=== PATIENT | male | born 1945 | race Caucasian/White ===

== ENCOUNTER 2017-05-30 11:44 | Outpatient (CLI) | payer MEDICARE ==
[~2017-05-30] VITALS: Ht 177.8 cm; Wt 114.5 kg
--- NOTE | ~2017-05-30 | DS ---
PATIENT:JYOTSNA RAY JR :45 MEDICAL RECORD: [id number] DISCHARGE SUMMARY ADMISSION DATE: 05/30/17 DISCHARGE DATE: 05/31/17 DIAGNOSES: 1. Angina. 2. Elevated troponin. 3. Nonsustained ventricular tachycardia. 4. Arm pain. HOSPITAL COURSE: This is a gentleman who had a fall and presented with arm pain after his fall, was noted to have nonsustained ventricular tachycardia and multiple PVCs and a mildly elevated troponin. He underwent cardiac catheterization revealing significant disease of the RCA and PTCA stent of the RCA. He was discharged home with the addition of aspirin, Plavix and Lopressor to his medical regimen. He will follow up with [facility] in 1 month. TRANSINT:[id number] Voice Confirmation ID: [id number] DOCUMENT ID: [id number] FAM BENAVIDES MD at 1056 CC: [id number] DICTATION DATE: 05/31/17916 ARTIST'S MODEL: 05/31/17 1326 DEP CLI 05/31/[address] [address]
--- NOTE | ~2017-05-30 | OP ---
PATIENT NAME: JYOTSNA RAY JR MEDICAL RECORD: [id number] :45 LOCATION:D.ER ADMISSION DATE: SURGEON: FAM BENAVIDES MD DATE OF OPERATION: 05/31/2017 PROCEDURES: 1. PTCA stent RCA. 2. Left heart catheterization. 3. Selective coronary angiography. 4. Left ventriculogram. 5. Intravascular ultrasound. INDICATION: Unstable angina, elevated troponin, and nonsustained ventricular tachycardia. PROCEDURE IN DETAIL: After informed consent was obtained and after a detailed description of risks, benefits as well as alternative therapies, the patient elected to proceed with angiogram and angioplasty. The right femoral area was prepped and draped in normal sterile fashion. Right femoral artery was cannulated via modified Seldinger technique with placement of 6-English sheath. All catheters exchanged through this sheath. FINDINGS: The left ventriculogram was performed in standard 30-degree HOLMAN view reveals preserved cardiac wall motion, ejection fraction 55%. SELECTIVE CORONARY ANGIOGRAPHY: 1. Left main is with no significant angiographic disease. 2. Left anterior descending has moderate irregularities, but no flow-limiting stenosis. 3. The left circumflex has moderate irregularities, but no flow-limiting stenosis. 4. Right coronary artery has 65% to 70% stenosis confirmed by intravascular ultrasound in the mid vessel. PTCA STENT OF THE RCA: The stent used was a 4.0 x 18 mm Integrity. Result was 0% residual stenosis. OVERALL IMPRESSION: Successful percutaneous transluminal coronary angioplasty stent of the right coronary artery going from 65% to 70% initial stenosis to 0% residual stenosis. TRANSINT:[id number] Voice Confirmation ID: [id number] DOCUMENT ID: [id number] FAM BENAVIDES MD at 1056 CC: [id number] DICTATION DATE: 05/31/17 0916 HOLLOW WARE MAKER: 05/31/17 1230 DEP CLI 05/31/17 [place] [address]
--- NOTE | ~2017-05-30 | HEMODYNAMI ---
PATIENT:JYOTSNA RAY JR MEDICAL RECORD: [id number] : 45 LOCATION:[address] [facility]# [id number] ADMISSION DATE: 05/30/17 Generatedon:05/31/20179:11 Patient name: JYOTSNA RAY Patient #: [id number] SSN: [id number] : 1945 Date of study: 05/31/2017 Page: Of Hemodynamic Procedure Report Patient Data Patient Demographics Procedure consent was obtained First Name: JYOTSNA Gender: Male Last Name: CORY Suffix: Patient #: [id number] : 1945 Age: 72 year(s) SSN: [id number] Race: Additional ID: [id number] Contact details Address: [address] [place] [address] State: [place] City: [facility] Zip code: [address] Past Medical History Allergies: No known allergies Admission Admission Data Admission Date: 05/30/2017 Admission Time: 14:38 Room #: D.2124 Lab Results Lab Result Date: 05/31/2017 Lab Result Time: 0:00 Biochemistry Name Units Result Min Max BUN mg/dl 34 --(----)-* 7 18 Creatinine mg/dl 2.2 --(----)-* 0.6 1.3 CBC Name Units Result Min Max Hemoglobin g/dl 11.5 *-(----)-- 13.5 17.5 Procedure Procedure Types Cath Procedure Diagnostic Procedure LHC [facility] w/Coronaries FFR/IVUS Intra-Coronary IVUS Initial PCI Procedure Coronary Stent Coronary Stent Initial Procedure Description Procedure Date Procedure Date: 05/31/2017 Procedure Start Time: 8:50 Procedure End Time: 9:11 Procedure Staff Name Function Francesco Dejesus MD Performing Physician Michael Meyers RT Monitor Francesca Coleman RT Scrub Kali Justin RN Nurse Procedure Data Cath Procedure Fluoroscopy Diagnostic fluoroscopy Total fluoroscopy Time: 4.2 time: 4.2 min min Diagnostic fluoroscopy Total fluoroscopy dose: dose: 323.3 mGy 323.3 mGy Contrast Material Contrast Material Type Amount (ml) Isovue 300 106 Entry Location Entry Primary Successful Side Size Upsize Upsize Entry Closure Succes sful Closure Location (Fr) 1 (Fr) 2 (Fr) Remarks Device Remarks Femoral Right 6 Fr Exoseal artery Short Diagnostic catheters Device Type Used For End Catheter Placement MULTIPACK Pigtail 5 Fr Procedure catheter MULTIPACK JL 4.0 5Fr Procedure catheter Procedure Medications Medication Administration Route Dosage Oxygen etCO2 Nasal cannula 6 l/min Heparin Flush Bag added to field 2 bags (1000units/500ml NS) 0.9% NaCl I.V. 100 ml/hr Refer to Anesthesia Notes for Sedation Medications Heparin Bolus I.V. 4000 units Hemodynamics Rest HGB: 11.5 (g/dl) Heart Rate: 87 (bpm) Pressure Samples Time Site Value (mmHg) Purpose Heart Use Rate(bpm) 8:52 LV 92/21,24 Snapshot 86 Snapshots Pre Cath Intra NCS Post Cath Vital Signs Time Heart Resp SPO2 etCO2 NIBP (mmHg) Rhythm Pain Sedation Rate (ipm) (%) (mmHg) Status Level (bpm) 8:37:38 87 22 97 0 152/114(140) NSR 0 (11) 10(A) , No pain 8:42:13 86 20 99 2.2 154/113(131) NSR 0 (11) 10(A) , No pain 8:46:43 83 19 94 0 121/82(103) NSR 0 (11) 10(A) , No pain 8:51:10 83 16 93 0 107/74(89) NSR 0 (11) 10(A) , No pain 8:55:36 81 19 84 0 95/64(80) NSR 0 (11) 8(A) , No pain 8:59:56 85 16 93 9 95/65(82) NSR 0 (11) 8(A) , No pain 9:04:16 84 16 95 9 100/65(80) NSR 0 (11) 8(A) , No pain 9:08:38 86 29 95 4.5 97/65(84) NSR 0 (11) 8(A) , No pain Medications Time Medication Route Dose Verified Delivered Reason Notes Effectiveness by by 8:45:59 Oxygen etCO2 6 Francesco Bass Per physician Nasal l/min Anjelica Justin RN cannula 8:46:19 Heparin Flush added 2 Francesco Bass used for Bag to bags Anjelica Justin electronics scale tester (1000units/500ml field NS) 8:46:32 0.9% NaCl I.V. 100 Francesco Bass Per physician ml/hr Anjelica Justin RN 8:46:48 Refer to Francesco Bass Per physician Anesthesia Notes Anjelica Justin RN for Sedation Medications 9:01:33 Heparin Bolus I.V. 4000 Francesco Bass for units Anjelica Justin RN anticoagulation Procedure Log Time Note 7:41:07 Informed consent obtained and on chart 7:41:11 Diagnostic Cath Status : Elective 8:21:39 Francesca Coleman RT(R) sent for patient. Start room use. 8:31:41 Time tracking: Regular hours 8:31:47 Plan of Care:Hemodynamics will remain stable., Cardiac rhythm will remain stable., Comfort level will be maintained., Respiratory function will remain adequate., Patient/ family verbilizes understanding of procedure., Procedure tolerated without complication., Recovers from procedure without complications.. 8:36:08 Vital chart was started 8:38:33 Patient received from Med II to CCL 3 Alert and oriented. Tansferred to table in Supine position. 8:38:34 Warm blankets applied, and dameon hugger turned on for patient comfort. 8:38:34 Correct patient and procedure confirmed by team. 8:39:04 Baseline sample Acquired. 8:39:08 Rhythm: sinus rhythm 8:39:14 Full Disclosure recording started 8:39:34 H&P Date Dictated: 05/30/2017 Within 30 days and on chart.. 8:39:36 Pre-procedure instructions explained to patient. 8:39:36 Pre-op teaching completed and patient verbalized understanding. 8:39:38 Family unavailable. 8:39:41 Patient NPO since Midnight. 8:39:47 Patient allergic to No known allergies 8:39:52 Is the patient allergic to Iodine/contrast media? No. 8:39:55 Is patient on blood thinner?Yes 8:39:58 ACC The patient was administered the following blood thiners within the last 24 hours: ACCPlavix 8:40:01 Patient diabetic? Yes. 8:40:20 If diabetic: On Metformin? Yes 8:40:25 ----Pre-sedation anethsthesia assessment.---- 8:40:29 Previous problem with sedation/anesthesia? No ? 8:40:31 Snore? Yes 8:40:51 Sleep apnea? Yes 8:40:54 Deviated septum? No 8:40:55 Opens mouth fully? Yes 8:40:56 Sticks out tongue? Yes 8:41:00 Airway obstruction? No ? 8:41:04 Dentures? No ? 8:41:17 Pre procedure: right dorsailis pedis pulse Doppler 8:41:27 IV patent on arrival in right forearm with 0.9% NaCl at [facility]. 8:42:23 Lab Result : BUN 34 mg/dl 8:42:23 Lab Result : Hemoglobin 11.5 g/dl 8:42:23 Lab Result : Creatinine 2.2 mg/dl 8:42:29 Lab results completed and on chart. 8:42:33 Right groin area was prepped with chlora-prep and draped in sterile fashion 8:42:36 Alarms reviewed by R. N. 8:42:36 Sharps counted by scrub and verified by R.N. 8:43:51 Clark Preciado with Anesthesia here for sedation 8:44:09 Use device set Femoral Dx 8:44:10 ACIST Syringe (03876) opened to sterile field. 8:44:11 Bag Decanter (2002S) opened to sterile field. 8:44:12 Medline Cath Pack ([id number]) opened to sterile field. 8:44:13 DIAGNOSTIC WIRE .035 260cm J wire (870241) opened to sterile field. 8:44:16 ACIST Hand Control (67098) opened to sterile field. 8:44:17 ACIST Manifold (89731) opened to sterile field. 8:44:21 DIAGNOSTIC Multipack 5Fr catheter set (CS5891) opened to sterile field. 8:44:22 Tegaderm 4 x 4 (1626W) opened to sterile field. 8:44:58 SHEATH 6Fr Prelude ([id number]) opened to sterile field. 8:45:35 Physician arrived 8:45:35 --------ALL STOP TIME OUT------ 8:45:37 Final Timeout: patient, procedure, and site verified with staff and physician. All members of the team are in agreement. 8:45:40 Right groin site verified by team. 8:45:44 Physical assessment completed. ASA score P 4 - A patient with severe systemic disease that is a constant threat to life as per Francesco Dejesus MD. 8:45:51 Sedation plan: TIVA Medication:Propofol 8:45:59 Oxygen 6 l/min etCO2 Nasal cannula was administered by Kali Justin RN; Per physician; 8:46:19 Heparin Flush Bag (1000units/500ml NS) 2 bags added to field was administered by Kali Justin RN; used for procedure; 8:46:32 0.9% NaCl 100 ml/hr I.V. was administered by Kali Justin RN; Per physician; 8:46:48 Refer to Anesthesia Notes for Sedation Medications was administered by Kali Justin RN; Per physician; 8:50:35 Procedure started. 8:50:44 Local anesthetic to right femoral artery with Lidocaine 2% by Francesco Dejesus MD.INITIAL ACCESS ONLY 8:51:32 A 6 Fr Short sheath was inserted into the Right Femoral artery 8:51:43 A MULTIPACK Pigtail 5 Fr catheter was advanced over the wire and used for Procedure. 8:52:25 Zero performed for pressure channel P1 8:52:39 LV hemodynamics recorded. 8:52:41 LV gram done using HOLMAN 8:52:46 EF : 60 % 8:52:48 Catheter removed. 8:52:54 A MULTIPACK JL 4.0 5Fr catheter was advanced over the wire and used for Procedure. 8:53:17 LCA angiography performed. 8:54:16 Catheter removed. 8:54:44 RCA angiography performed. 8:55:42 Catheter removed. 8:55:43 Proceeding to intervention. 8:56:09 INFLATOR Merit BasixCompak (MH1548) opened to sterile field. 8:56:25 GUIDE 6FR HS I catheter (LA6HSI) opened to sterile field. 8:56:55 CHOICE PT Extra Support 182cm wire ([id number]) opened to sterile field. 8:56:55 Olympia Chevak Eagleye IVUS Catheter (07318N) opened to sterile field. 8:57:08 6 Fr HS 1 guide catheter was inserted over the wire 8:57:37 CHOICE wire advanced. 8:57:48 IVUS catheter advanced over wire. 9:01:33 Heparin Bolus 4000 units I.V. was administered by Kali Justin RN; for anticoagulation; 9:02:05 IVUS pass to RCA lesion performed. 9:02:06 IVUS catheter removed over wire. 9:02:23 IVUS 63.1% 9:03:13 Place stent Inflation Number: 1 A INTEGRITY 4.0 x 18 stent ([id number]) was prepped and advanced across the Mid RCA. The stent was deployed at 15 LESLIE for 0:10 (min:sec). 9:04:19 Stent catheter was removed intact over wire. 9:04:19 Wire removed. 9:04:20 Guide catheter removed. 9:04:29 EXOSEAL 6Fr (EX600) opened to sterile field. 9:05:16 Sheath removed intact; hemostasis achieved with Exoseal to the Right Femoral artery. 9:05:20 Procedure ended.(Physican Out) 9:06:51 Fluoroscopy time 04.20 minutes. 9::59 Fluoroscopy dose: 323.3 mGy 9:06:59 Flurop Dose total: 323.3 9:07:07 Contrast amount:Isovue 300 106ml. 9:07:08 Sharps counted by scrub and verified by R.N. 9:07:29 Procedure type changed to Cath procedure, Diagnostic procedure, LHC, LHC w/Coronaries, FFR/IVUS, Intra-Coronary IVUS Initial, PCI procedure, Coronary Stent, Coronary Stent Initial 9:10:15 Insertion/operative site no bleeding no hematoma. 9:10:19 Post-op/insertion site Right Femoral artery dressed using a 4 x 4 and Tegaderm. 9:10:23 Post right femoral artery:stable 9:10:34 Post Procedure Pulses reassessed and unchanged 9:10:42 Post-procedure physical assessment completed. ASA score P 4 - A patient with severe systemic disease that is a constant threat to life as per Francesco Dejesus MD. 9:10:48 Post procedure rhythm: sinus rhythm 9:10:56 Procedure and supply charges have been captured, reviewed, submitted and are correct. 9:10:57 Vital chart was stopped 9:10:58 See physician's report for complete and final results. 9:11:00 Report given to Med II. 9:11:04 Patient transfered to [facility] II with Bed. 9:11:21 Procedure ended. 9:11:21 Full Disclosure recording stopped 9:11:25 End room use (Document Last) Intervention Summary Intervention Notes Time ActionType Lesion and Equipment Action# Pressure Duration Attributes Used 9:03:13 Place stent Mid RCA INTEGRITY 1 15 00:10 4.0 x 18 stent ([id number]) Device Usage Item Name Manufacture Quantity Catalog Number Hospital Part Current Mini mal Lot# / Charge Number Stock Stock Serial# Code ACIST Acist 1 50905 483196 964564 023765 20 Syringe Medical (76257) Systems Inc Bag Decanter Microtek 1 2001S 533725 45141 386254 5 () Medical Inc. Medline Cath Cardinal 1 [id number] 861271 98040 926500 5 Pack Health ([id number]) DIAGNOSTIC St Joel 1 200648 686880 162694 046647 30 WIRE .035 260cm J wire (434132) ACIST Hand Acist 1 60308 638145 988286 519474 5 Control Medical (83854) Systems Inc ACIST Acist 1 52686 910158 438958 551012 5 Manifold Medical (58398) Systems Inc DIAGNOSTIC Cardinal 1 JO7624 999360 32932 918119 30 Multipack Health 5Fr catheter set (BZ7596) Tegaderm 4 x 3M 1 1626W 073425 477512 817880 5 4 (1626W) SHEATH 6Fr Merit 1 [id number] 730330 424971 284827 5 Prelude Medical ([id number]) MULTIPACK Cardinal 1 148534 5 Pigtail 5 Fr Health catheter MULTIPACK JL Cardinal 1 515147 5 4.0 5Fr Health catheter INFLATOR Merit 1 AW1318 546760 228058 378868 15 [facility] Medical BasixCompak (TD1000) GUIDE 6FR HS Medtronic 1 LA6HSI 293194 55989 238880 1 I catheter (LA6HSI) CHOICE PT [place] 1 [id number] 289854 467634 280740 5 Extra Scientific Support 182cm wire ([id number]) Olympia Olympia 1 65618F 284618 335782 550752 8 Chevak Eagleye IVUS Catheter (27624F) INTEGRITY Medtronic 1 [id number] 883272 386694 781994 5 [id number] 4.0 x 18 stent ([id number]) EXOSEAL 6Fr Cardinal 1 EX600 580938 332291 991769 10 (EX600) Health Signature Audit [place] Stage Time Signature Unsigned Intra-Procedure 05/31/2017 Michael Meyers 9:11:50 AM RT(R) (CV) Signatures Monitor : Michael Meyers RT Signature : Date : Time : [place] [id number] [facility] [place] [address]
--- NOTE | ~2017-05-30 | HP ---
PATIENT: JYOTSNA HOLDER JR MEDICAL RECORD: [id number] ACCOUNT: [id number] LOCATION:[address] : 45 ADMISSION DATE: 05/30/17 HISTORY AND PHYSICAL EXAMINATION DIAGNOSES: 1. Coronary artery disease. 2. Abnormal ECG. 3. Elevated troponin. 4. Previous percutaneous transluminal coronary angioplasty with stent. HISTORY OF PRESENT ILLNESS: Mr. Holder actually presented to the Emergency Room after a fall and pain in his left arm. He is noted to have markedly abnormal EKG and multiple episodes of nonsustained ventricular tachycardia. His troponin is positive. He does have a cardiac history of a cardiac stent last winter. PHYSICAL EXAMINATION: GENERAL APPEARANCE: Well-nourished, well-developed, appears stated age. Level of distress, comfortable. PSYCHIATRIC: Mental status, alert, normal affect. Orientation, oriented to time, place and person. EYES: Lids and conjunctiva, noninjected. No discharge, no pallor. ENT: Lips, teeth, gums, normal dentition. Oropharynx, no cyanosis, no pallor. NECK: Carotid arteries, bilateral normal upstroke, no bruits, no thrills. JUGULAR VEINS: No jugular venous pressure or distention. CERVICAL LYMPH NODES: Nontender, nonenlarged. THYROID: Not enlarged. Nontender. No nodules. LUNGS: Respiratory effort, unlabored. CHEST: Normal curvature. No thoracic deformity. No chest wall tenderness. Percussion, resonant. Auscultation, clear. No wheezes, no rales, no rhonchi. CARDIOVASCULAR: Precordial exam, nondisplaced. No heaves or pericardial thrills. Rate and rhythm, regular. Heart sounds, normal S1, normal S2. No S3, no gallop, no rub. Systolic murmur, not heard. Diastolic murmur, not heard. EXTREMITIES: No cyanosis, no edema. Peripheral pulses, full and equal in all extremities, except as noted. No bruits appreciated. ABDOMEN: Soft, nondistended. Normal aorta. No bruit. Nontender. No masses. Liver, nontender, no hepatomegaly. Spleen, nontender, no splenomegaly. MUSCULOSKELETAL: No joint tenderness. No joint swelling. No erythema. NEUROLOGICAL: Normal gait, normal strength, normal tone. SKIN: Warm and dry. OVERALL IMPRESSION: Grossly abnormal ECG in a patient with a past history of coronary artery disease and mildly elevated troponin. Most likely, he has recurrent hemodynamically significant coronary artery disease. We will start Lopressor 25 mg b.i.d., hydrate him, proceed with coronary angiography in the a.m. TRANSINT:[id number] Voice Confirmation ID: [id number] DOCUMENT ID: [id number] HISTORY AND PHYSICAL [id number] JYOTSNA HOLDER JR, JEFFREY MD at 0910 CC: [id number] DICTATION DATE: 05/30/17 1553 PHOTOVOLTAIC INSTALLATION TECHNICIAN: 05/30/17 1612 ADM IN [facility] [address] [id number]
[2017-05-30 13:09] LABS: BASOPHILS 0.3 % (0-2); EOSINOPHILS 0.1 % (0-7); HEMATOCRIT 35.2 % (42.0-54.0); HEMOGLOBIN 11.5 g/dL (13.5-17.5); IMMATURE GRANULOCYTES 0.4 % (0-5); LYMPHOCYTES 8.6 % (15-50); MCH 26.4 pg (26.0-34.0); MCHC 32.7 g/dL (31.0-37.0); MCV 80.9 fL (80.0-100.0); MEAN PLATELET VOLUME 10.9 fL (7.4-10.4); MONOCYTES 9.7 % (2-11); NEUTROPHILS 80.9 % (40-80); PLATELET COUNT 202 10x3/uL (130-400); RBC 4.35 10x6/uL (4.20-6.10); WBC 7.6 10x3/uL (4.8-10.8)
[2017-05-30 13:44] LABS: ANION GAP 11.7 mmol/L (8-16); CALCIUM 8.1 mg/dL (8.5-10.1); CARBON DIOXIDE 30.4 mmol/L (21.0-32.0); CREATININE - SERUM 2.2 mg/dL (0.6-1.3); POTASSIUM - SERUM 3.1 mmol/L (3.5-5.1)
[2017-05-30 13:47] LABS: TROPONIN-I 0.115 ng/mL (0.000-0.060)
[2017-05-30 15:35] VITALS: BP 144/91; Ht 177.8 cm; Wt 114.5 kg
[2017-05-30] MEDS ORDERED: ZYLOPRIM100 MG PO (15:57)
[2017-05-30] MEDS ORDERED: FUROSEMIDE20 MG PO (15:58)
[2017-05-30] MEDS ORDERED: PAROXETINE HCL10 MG PO (15:58)
[2017-05-30] MEDS ORDERED: ASPIRIN81 MG PO (15:59)
[2017-05-30] MEDS ORDERED: HYDRALAZINE HCL10 MG PO (15:59)
[2017-05-30] MEDS ORDERED: GLUCOPHAGE500 MG PO (16:00)
[2017-05-30] MEDS ORDERED: LIPITOR20 MG PO (16:01)
[2017-05-30] MEDS ORDERED: COMBIVENT RESPIM4 GM INH (16:02)
[2017-05-30] MEDS ORDERED: SPIRIVA18 MCG INH (16:03)
[2017-05-30 19:00] VITALS: BP 167/82
[2017-05-30 20:37] LABS: CKMB 2.8 U/L (0.0-3.6); CREATINE KINASE 175 UL (21-232)
[2017-05-30 20:55] LABS: TROPONIN-I 0.108 ng/mL (0.000-0.060)
[2017-05-31] VITALS: BP 133/80
[2017-05-31 01:39] LABS: CKMB 2.8 U/L (0.0-3.6); CREATINE KINASE 158 UL (21-232)
[2017-05-31 01:43] LABS: TROPONIN-I 0.084 ng/mL (0.000-0.060)
[2017-05-31 04:00] VITALS: BP 134/88
[2017-05-31 07:06] LABS: CKMB 3.7 U/L (0.0-3.6); CREATINE KINASE 174 UL (21-232)
[2017-05-31 07:44] VITALS: BP 142/98
[2017-05-31] MEDS ORDERED: PLAVIX75 MG PO (13:27)
[2017-05-31] MEDS ORDERED: METOPROLOL TART25 MG PO (13:27)
[2017-05-31 14:46] VITALS: BP 154/95
== END 2017-05-31 18:24 | disposition home or self-care (01) ==
LOC: OBSVTIME → D.ER 11:44 → D.M2 14:38 → OBSVTIME 15:44 → EDSTATUS 05-31 11:00 → D.M2 05-31 18:24 → D.ER 05-31 18:24
PROVIDERS: Emergency Medicine
DX: I25.119 Atherosclerotic heart disease of native coronary artery with unspecified angina pectoris (principal); I47.2 Ventricular tachycardia; R94.31 Abnormal electrocardiogram [ECG] [EKG]; Z95.5 Presence of coronary angioplasty implant and graft; Z01.812 Encounter for preprocedural laboratory examination

== ENCOUNTER → 2018-08-14 13:57 | Outpatient (CLI) | payer MEDICARE, MEDICAID ==
[2017-05-30 15:35] VITALS: BMI 35.9
[~2018-08-14 13:57] MED LIST: ASPIRIN81 MG PO; COMBIVENT RESPIM4 GM INH; FUROSEMIDE20 MG PO; GLUCOPHAGE500 MG PO; HYDRALAZINE HCL10 MG PO; LIPITOR20 MG PO; METOPROLOL TART25 MG PO; PAROXETINE HCL10 MG PO; PLAVIX75 MG PO; SPIRIVA18 MCG INH; ZYLOPRIM100 MG PO
[2018-08-14 14:54] LABS: CREATININE - URINE 35.9 mg/dL (30-125); PRO/CRE RATIO URINE 3.8 mg/g; PROTEIN - URINE 135.1 mg/dL (0.0-11.9)
[2018-08-14 14:55] LABS: ANION GAP 10.4 mmol/L (8-16); CALCIUM 8.4 mg/dL (8.5-10.1); CARBON DIOXIDE 29.4 mmol/L (21.0-32.0); CREATININE - SERUM 2.1 mg/dL (0.6-1.3); POTASSIUM - SERUM 3.8 mmol/L (3.5-5.1)
[2018-08-14 17:08] LABS: APPEARANCE CLEAR (CLEAR); BILIRUBIN NEGATIVE (NEGATIVE); COLOR YELLOW (YELLOW); GLUCOSE NEGATIVE (NEGATIVE); KETONE NEGATIVE (NEGATIVE); NITRITE NEGATIVE (NEGATIVE); PROTEIN TRACE mg/dL (NEGATIVE); UROBILINOGEN NORMAL (NORMAL)
== END | disposition home or self-care (01) ==
LOC: D.LAB 13:57
PROVIDERS: ATTEND Internal Medicine Nephrology
DX: N28.1 Cyst of kidney, acquired (principal); I10 Essential (primary) hypertension; I50.9 Heart failure, unspecified; N18.4 Chronic kidney disease, stage 4 (severe)

== ENCOUNTER → 2019-03-02 08:20 | Outpatient (CLI) | payer MEDICARE, MEDICAID ==
[2017-05-30 15:35] VITALS: BMI 35.9
== END | disposition home or self-care (01) ==
LOC: D.HCCECHO 08:20
PROVIDERS: ATTEND Internal Medicine Cardiovascular Disease
DX: I25.10 Atherosclerotic heart disease of native coronary artery without angina pectoris (principal)